=== PATIENT | male | born 1945 | race Caucasian/White ===

== ENCOUNTER → 2023-06-08 06:24 | Outpatient (REF) | payer MEDICARE, OTHER, SELFPAY | LOC: EMG 06:24 | PROVIDERS: ATTENDING PHYSICIAN Orthopaedic Surgery; FAMILY PHYSICIAN Internal Medicine | DX: R20.0 Anesthesia of skin (principal); M54.12 Radiculopathy, cervical region | CPT/HCPCS: 95886; 95911 ==

== ENCOUNTER → 2023-07-12 12:44 | Outpatient (REF) | payer MEDICARE, OTHER, SELFPAY | LOC: HWRAD 12:44 | PROVIDERS: ATTENDING PHYSICIAN Otolaryngology; FAMILY PHYSICIAN Internal Medicine | DX: E04.0 Nontoxic diffuse goiter (principal) | CPT/HCPCS: 76536 ==

== ENCOUNTER → 2023-11-30 14:38 | Outpatient (REF) | payer MEDICARE, OTHER, SELFPAY ==
[2023-11-30 14:49] LABS: % Basophils 0.4 % (0-2); % Eosinophils 1.5 % (0-6); % Immature Granulocytes 0.1 % (0-0.5); % Lymphocytes 12.7 % (20.5-51.1); % Monocytes 10.3 % (1.7-9.3); Absolute Eosinophils 0.1 10^3/uL (0-0.7); Absolute Lymphocytes 1.1 10^3/uL (1.2-3.4); Absolute Monocytes 0.9 10^3/uL (0.1-0.6); Absolute Neutrophils 6.3 10^3/uL (1.4-6.5); Hematocrit 34.8 % (39.0-52.0); Hemoglobin 11.9 g/dL (13.0-18.0); Mean Corp Hgb Conc. 34.2 g/dL (33.0-37.0); Mean Corpuscular Hgb 34.2 pg (27.0-31.0); Mean Platelet Volume 10.5 fL (7.4-10.4); Platelet Count 211 10^3/uL (130-400); Red Blood Cell Count 3.48 10^6/uL (4.70-6.10); Red Cell Dist. Width 12.3 % (11.5-14.5); White Blood Cell Count 8.4 10^3/uL (4.8-10.8)
[2023-11-30 16:13] LABS: ALT (SGPT) 23 U/L (0-50); AST (SGOT) 21 U/L (17-59); Albumin 4.4 g/dl (3.5-5.0); Alkaline Phosphatase 60 U/L (38-126); Blood Urea Nitrogen 50 mg/dl (9-20); Calcium 9.8 mg/dl (8.4-10.2); Carbon Dioxide 25 mmol/L (22-30); Chloride 105 mmol/L (98-107); Glucose 97 mg/dl (70-99); Potassium 3.7 mmol/L (3.5-5.1); Sodium 137 mmol/L (135-145); Total Bilirubin 0.4 mg/dl (0.2-1.3); Total Protein 6.8 g/dl (6.3-8.2); eGFR 27.28
[2023-11-30 16:15] LABS: LDH 238 U/L (120-246)
== END ==
LOC: OIDL 14:38
PROVIDERS: ATTENDING PHYSICIAN Internal Medicine Hematology & Oncology
DX: C88.4 Extranodal marginal zone B-cell lymphoma of mucosa-associated lymphoid tissue [MALT-lymphoma] (principal)
CPT/HCPCS: 80053; 83615; 85025

== ENCOUNTER → 2024-02-23 09:12 | Outpatient (REF) | payer MEDICARE, OTHER, SELFPAY | LOC: HWRAD 09:12 | PROVIDERS: ATTENDING PHYSICIAN Otolaryngology; FAMILY PHYSICIAN Internal Medicine | DX: E04.0 Nontoxic diffuse goiter (principal) | CPT/HCPCS: 76536 ==

== ENCOUNTER → 2024-11-13 10:51 | Outpatient (REF) | payer MEDICARE, OTHER, SELFPAY ==
[2024-11-13 15:57] LABS: Blood Urea Nitrogen 55 mg/dl (9-20); Calcium 10.5 mg/dl (8.4-10.2); Carbon Dioxide 29 mmol/L (22-30); Chloride 104 mmol/L (98-107); Glucose 91 mg/dl (70-99); Potassium 4.3 mmol/L (3.5-5.1); Sodium 139 mmol/L (135-145); Uric Acid 9.7 mg/dl (3.5-8.5); eGFR 23.68
== END ==
LOC: HWLAB 10:51
PROVIDERS: ATTENDING PHYSICIAN Specialist; FAMILY PHYSICIAN Internal Medicine
DX: N18.4 Chronic kidney disease, stage 4 (severe) (principal); E79.0 Hyperuricemia without signs of inflammatory arthritis and tophaceous disease
CPT/HCPCS: 36415; 80048; 84550

== ENCOUNTER → 2024-11-28 16:26 | Outpatient (REF) | payer MEDICARE, OTHER, SELFPAY ==
[2024-11-28 15:30] LABS: Hematocrit 31.6 % (39.0-52.0); Hemoglobin 10.9 g/dL (13.0-18.0); Mean Corp Hgb Conc. 34.5 g/dL (33.0-37.0); Mean Corpuscular Volume 97.8 fL (80.0-94.0); Platelet Count 224 10^3/uL (130-400); Red Cell Dist. Width 12.3 % (11.5-14.5)
[2024-11-28 16:18] LABS: ALT (SGPT) 22 U/L (0-50); AST (SGOT) 19 U/L (17-59); Albumin 4.3 g/dl (3.5-5.0); Alkaline Phosphatase 51 U/L (38-126); Blood Urea Nitrogen 60 mg/dl (9-20); Calcium 9.6 mg/dl (8.4-10.2); Carbon Dioxide 24 mmol/L (22-30); Chloride 105 mmol/L (98-107); Glucose 138 mg/dl (70-99); LDH 252 U/L (120-246); Potassium 3.4 mmol/L (3.5-5.1); Sodium 139 mmol/L (135-145); Total Protein 6.7 g/dl (6.3-8.2); eGFR 23.54
== END ==
LOC: OIDL 16:26
PROVIDERS: ATTENDING PHYSICIAN Internal Medicine Hematology & Oncology
DX: C88.40 Extranodal marginal zone B-cell lymphoma of mucosa-associated lymphoid tissue [MALT-lymphoma] not having achieved remission (principal); D64.9 Anemia, unspecified
CPT/HCPCS: 80053; 83615; 85025

== ENCOUNTER → 2025-02-05 09:45 | Outpatient (REF) | payer MEDICARE, OTHER, SELFPAY | LOC: HWRAD 09:45 | PROVIDERS: ATTENDING PHYSICIAN Otolaryngology; FAMILY PHYSICIAN Internal Medicine | DX: E04.0 Nontoxic diffuse goiter (principal) | CPT/HCPCS: 76536 ==

== ENCOUNTER → 2025-03-04 12:41 | Outpatient (REF) | payer MEDICARE, OTHER, SELFPAY ==
[2025-03-04 15:29] LABS: Albumin 4.5 g/dl (3.5-5.0); Blood Urea Nitrogen 58 mg/dl (9-20); Calcium 10.2 mg/dl (8.4-10.2); Carbon Dioxide 25 mmol/L (22-30); Chloride 103 mmol/L (98-107); Glucose 90 mg/dl (70-99); Potassium 3.8 mmol/L (3.5-5.1); Sodium 137 mmol/L (135-145); eGFR 22.53
== END ==
LOC: HWLAB 12:41
PROVIDERS: ATTENDING PHYSICIAN Specialist; FAMILY PHYSICIAN Internal Medicine
DX: N18.4 Chronic kidney disease, stage 4 (severe) (principal); D63.8 Anemia in other chronic diseases classified elsewhere; I10 Essential (primary) hypertension
CPT/HCPCS: 36415; 80069; 83970

== ENCOUNTER → 2025-04-14 10:54 | Outpatient (REF) | payer MEDICARE, OTHER, SELFPAY ==
[2025-04-14 13:20] LABS: Albumin 4.6 g/dl (3.5-5.0); Blood Urea Nitrogen 54 mg/dl (9-20); Calcium 10.2 mg/dl (8.4-10.2); Carbon Dioxide 25 mmol/L (22-30); Chloride 103 mmol/L (98-107); Glucose 90 mg/dl (70-99); Potassium 4.2 mmol/L (3.5-5.1); Sodium 139 mmol/L (135-145); eGFR 19.94
[2025-04-14 13:33] LABS: Vitamin D, 25-OH*** 50.4 ng/mL (30-80)
== END ==
LOC: REG 10:54
PROVIDERS: ATTENDING PHYSICIAN Specialist; FAMILY PHYSICIAN Internal Medicine
DX: E79.0 Hyperuricemia without signs of inflammatory arthritis and tophaceous disease (principal); D63.8 Anemia in other chronic diseases classified elsewhere; I10 Essential (primary) hypertension; N18.4 Chronic kidney disease, stage 4 (severe); E78.00 Pure hypercholesterolemia, unspecified
CPT/HCPCS: 36415; 80069; 82306; 82330; 82652; 83970